=== PATIENT | male | born 1980 | race Caucasian/White ===

== ENCOUNTER 2020-05-08 23:58 | Emergency (ER) | payer OTHER, SELFPAY ==
[2020-05-09 00:04] VITALS: BP 151/97; PULSE 101; RESP 19; TEMP 36.8; O2SAT 95; BMI 28.8
--- NOTE | 2020-05-09 00:06 | DI.CT.S_ITS ---
PROCEDURE: CT ORBIT LT WO CON INDICATIONS: facial trauma, eye pain, vision change TECHNIQUE: Noncontrast 2.5 mm axial images acquired through the orbits, with coronal and sagittal reformats. For radiation dose reduction, the following was used: automated exposure control, adjustment of mA and/or kV according to patient size. COMPARISON: None. FINDINGS: Image quality: Excellent. The exam was for left orbit. The right orbit is incompletely imaged. Orbits: Globes are symmetrical. No metallic foreign bodies. The optic nerves are normal in size. No retrobulbar masses or fat abnormalities. The extra-ocular muscles are normal and symmetrical in appearance. Lacrimal glands are normal in size. Optic chiasm is normal. Intracranial: Visualized portions of the cerebral hemispheres, brainstem, and spinal cord are normal. Bones and sinuses: Visualized calvarium and facial bones appear intact. Visualized sinuses and mastoids are clear. IMPRESSION: 1. No visible fracture. 2. Orbital soft tissues appear normal. 3. Concordant with preliminary report. Dictated by: Ainsley Thorne M.D. on 05/09/2020 at 6:48 Approved by: Ainsley Thorne M.D. on 05/09/2020 at 6:51
[2020-05-09] MEDS: FLUORESCEIN 1 MG STRIP EYE-LEFT (00:09)
[2020-05-09] MEDS: PROPARACAINE 0.5% OPHTH SOL 1 DROPS EYE-LEFT (00:10)
--- NOTE | 2020-05-09 00:16 | ED.FALL ---
HPI - Fall General Chief Complaint: Fall Stated Complaint: hit L eye on table Time Seen by Provider: 05/09/20 00:00 Source: patient and EMS Mode of arrival: EMS Limitations: no limitations History of Present Illness HPI Narrative: 39M smoker presents by EMS for evaluation of an accidental injury to his left eye just before arrival. He was drinking and fell, striking his eye on a table. He now has pain and blurred vision with swelling and some bleeding. His tetanus is up to date. He denies other injury. He takes no blood thinner. He has no headache, N/V or other. MD complaint: fall Onset (ago): minute(s) Fall from: standing Fall witnessed: yes, by bystander Place fall occurred: home Loss of consciousness: none Prolonged down time: no Symptoms prior to fall: none Context: tripped/slipped and alcohol use Location of injury: face Severity: mild Quality: aching Associated symptoms (after fall): other Related Data Allergies Allergy/AdvReac Type Severity Reaction Status Date / Time No Known Drug Allergies Allergy Verified 05/09/20 00:04 Review of Systems Constitutional Constitutional: Denies chills, Denies fatigue, Denies fever(s), Denies frequent falls, Denies lethargy and Denies weakness Eyes Eyes: Reports change in vision, Denies eye discharge, Denies irritation, Denies loss of vision and Reports eye pain ENT Ears, Nose, Mouth, and Throat: Denies change in voice, Denies dizziness, Denies neck pain, Denies sore throat and Denies throat swelling Cardiovascular Cardiovascular: Denies chest pain, Denies irregular heart rhythm, Denies lightheadedness, Denies palpitations, Denies dyspnea, Denies dyspnea on exertion and Denies orthopnea Respiratory Respiratory: Denies cough, Denies dyspnea, Denies dyspnea on exertion and Denies wheezing Gastrointestinal Gastrointestinal: Denies abdominal pain, Denies change in bowel habits, Denies diarrhea, Denies nausea and Denies vomiting Musculoskeletal Musculoskeletal: Denies neck pain and Denies numbness Integumentary/Breasts Skin/Breast: Denies pruritus, Denies erythema, Denies rash and Denies wounds Neurologic Neurologic: Denies behavioral changes, Denies confusion, Denies dizziness, Denies frequent falls, Denies loss of vision, Denies numbness and Denies weakness Psychiatric Psychiatric: Denies anxiety, Denies behavioral changes, Denies confusion, Denies depression, Denies homicidal ideation and Denies suicidal ideation Endocrine Endocrine: Denies fatigue, Denies flushing and Denies palpitations Hematologic/Lymphatic Hematologic/Lymphatic: Denies easy bruising Allergic/Immunologic Allergic/Immunologic: Denies urticaria, Denies throat swelling and Denies wheezing Patient History Social History Smoking Status: Current every day smoker Smoking Status: Current every day smoker alcohol intake frequency: 0-2 drinks per day Substance Use Type: does not use Exam Narrative Exam Narrative: GEN: AOx3 and in mild distress, GCS 15. HEAD:Bruising and swelling of left upper lid, otherwise no abdnormal findings. Superficial laceration of upper lid, no active bleeding. Not deep. Not through and through. Does not cross lid margin. EYES: Pupils are equal, round, and reactive to light and accommodation. Extraoccular muscles are intact bilaterally. There is no subconjunctival hemorrhage or exudate. No Hyphema or FB noted. Visual acuity 20/30 OS/OD/OU. No dye uptake under UV light. No abnormal findings with slit lamp. CHEST: Lungs are clear to auscultation bilaterally and free of wheezes, rales, or rhonchi. Heart rate is regular rhythm, there are no murmurs, clicks, rubs, or gallops. There is no chest wall tenderness. ABD: Abdomen is soft and nontender. There is no guarding or rebound. Bowel sounds are normal in all 4 quadrants. There is no mass or organomegaly. EXT: Full painless ROM of all extremities with no loss of sensation or strength. SKIN: Warm, pink, and dry. No erythema or rash Initial Vital Signs Initial Vital Signs: Vital Signs Temperature 98.3 F 05/09/20 00:04 Pulse Rate 101 H 05/09/20 00:04 Respiratory Rate 19 05/09/20 00:04 Blood Pressure 151/97 H 05/09/20 00:04 Pulse Oximetry 95 05/09/20 00:04 Course Orders Ordered: Discontinued Medications Fluorescein Sodium (Ful-Ling) 1 mg EYE-LEFT NOW ONE Stop: 05/09/20 00:01 Last Admin: 05/09/20 00:09 Dose: 1 mg Documented by: GURWINDER Proparacaine HCl (Parcaine 0.5% Ophth Liliana) 1 drops EYE-LEFT NOW ONE Stop: 05/09/20 00:01 Last Admin: 05/09/20 00:10 Dose: 1 drop Documented by: GURWINDER Vital Signs Vital signs: Vital Signs - 8 hr 05/09/20 00:04 Temperature 98.3 F Pulse Rate 101 H Respiratory Rate 19 Blood Pressure 151/97 H Pulse Oximetry 95 MDM - Fall Imaging Data CT scan - head: Radiologist's Impression: Chart Viewer Diagnostics DATE TYPE STATUS REF RANGE/AUTHOR Hx 05/09/20 00:06 Ainsley Thorne Robert L 39, M110/12/1979 [facility] ER, Main ED 185.42cm 98.883kg BMI: 28.8kg/m? Fall Search Chart No Data to Display No Data to Display ONSET Today 01:06 Horacio Edwards 39 M 1980 [place] [address] CT Scan Report Signed Patient: Horacio Edwards LMR#: [id number] : 1980Acct:[id number] Age/Sex: 39 / MDate of Service: 05/09/20 Loc: ED Accession Number: [id number] Procedure: CT orbit LT wo con Ordering Provider: Kevin Craven D.O. PROCEDURE: CT ORBIT LT WO CON INDICATIONS: facial trauma, eye pain, vision change TECHNIQUE: Noncontrast 2.5 mm axial images acquired through the orbits, with coronal and sagittal reformats. For radiation dose reduction, the following was used: automated exposure control, adjustment of mA and/or kV according to patient size. COMPARISON: None. FINDINGS: Image quality: Excellent. The exam was for left orbit. The right orbit is incompletely imaged. Orbits: Globes are symmetrical. No metallic foreign bodies. The optic nerves are normal in size. No retrobulbar masses or fat abnormalities. The extra-ocular muscles are normal and symmetrical in appearance. Lacrimal glands are normal in size. Optic chiasm is normal. Intracranial: Visualized portions of the cerebral hemispheres, brainstem, and spinal cord are normal. Bones and sinuses: Visualized calvarium and facial bones appear intact. Visualized sinuses and mastoids are clear. IMPRESSION: 1. No visible fracture. 2. Orbital soft tissues appear normal. 3. Concordant with preliminary report. Dictated by: Ainsley Thorne M.D. on 05/09/2020 at 6:48 Approved by: Ainsley Thorne M.D. on 05/09/2020 at 6:51 Discharge Plan Departure Patient Disposition: Home Clinical Impression: Face lacerations Qualifiers: Encounter type: initial encounter Qualified Code(s): S01.81XA - Laceration without foreign body of other part of head, initial encounter Discharge Date/Time: 05/09/20 01:07 Instructions: How to Prevent Falls Activity Restrictions/Additional Instructions: *You have been diagnosed with [ left upper lid contusion, superficial laceration ] *What to do: *Take medications as directed *Follow up with the [facility], call later this morning at about 830 to arrange follow up. Let them know you were seen in the Emergency Department and we want you seen today. *Return to ER if you should have any new, worsening or concerning symptoms Referrals: Herman Armendariz MD [Physician] -
--- NOTE | 2020-05-09 00:17 | PC.NURSE ---
Pt drinking at a friends house, fell and hit left eye and face on a table-per witness report. Two small abrasion w/scant bleeding. Left eye and eyelid swollen/bruised. Reports discomfort and trouble opening eye. Pupil equal/reactive.
[2020-05-09 01:06] VITALS: BP 135/98; PULSE 85; O2SAT 97
== END 2020-05-09 01:07 | disposition home or self-care (01) ==
LOC: ED 05-09 01:14
PROVIDERS: Emergency Provider Emergency Medicine
DX: S01.81XA Laceration without foreign body of other part of head, initial encounter (principal); S05.92XA Unspecified injury of left eye and orbit, initial encounter; W22.8XXA Striking against or struck by other objects, initial encounter
CPT/HCPCS: 70480; 99283; 99284

== ENCOUNTER → 2020-08-17 14:32 | Outpatient (ROUT) | payer OTHER, SELFPAY ==
[2020-08-17 15:31] LABS: COVID19 -Nasal RAPID Negative (Negative)
== END ==
PROVIDERS: Visit Provider Family Medicine
DX: R07.89 Other chest pain (principal); R05 Cough; R06.2 Wheezing
CPT/HCPCS: 87635

== ENCOUNTER → 2021-01-06 12:41 | Outpatient (ROUT) | payer OTHER, SELFPAY ==
[2021-01-06 13:01] LABS: COVID19 -Nasal RAPID Negative (Negative)
== END ==
PROVIDERS: Visit Provider Family Medicine
DX: Z20.822 Contact with and (suspected) exposure to COVID-19 (principal)
CPT/HCPCS: 87635